=== PATIENT | male | born 1940 | race Caucasian/White ===

== ENCOUNTER 2018-11-14 18:02 | Inpatient (IN) | payer MEDICARE ==
[~2018-11-14] VITALS: Ht 198.1 cm; Wt 113.4 kg
--- OUTSIDE RECORDS SUMMARY | 2018-11-14 18:53 | XMS REPORT | Clinical Summary ---
Author Author [employer] Organization [facility] Address Unknown Phone Unavailable Care Team Providers Care Client Business Manager Name Role Phone Sergey Collazo MD PCP Allergies No Known Allergies Medications End Date Status Medication Sig Dispensed Refills Start Date Active lisinopril Take 10 mg by 0 (PRINIVIL,ZESTRIL) 10 mg mouth daily. 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 Last Filed Vital Signs Not on file Plan of Treatment Health Maintenance Due Date Last Done Comments SHINGLES VACCINES (#1) 1991 65+ PNEUMOCOCCAL VACCINE 2006 (1 of 2 - PCV13) INFLUENZA VACCINE 10/15/2018 Results Not on fileafter 11/13/2017 Insurance Type Payer Benefit Subscriber ID Effective Phone Address Plan / Dates Group O [employer] xxxxxxxxx 2016-P KRUNAL restrepo Advance Directives For more information, please contact: [phone] Patient Student Recruiter Explanation Type Date Recorded Advance Directives, Living Will and Medical Power of Auto Service Representative
--- NOTE | 2018-11-14 19:40 | NUR ---
PATIENT RECEIVED. PATIENT IS AAOX3, RESP EVEN AND UNLABORED. NO ACUTE DISTRESS AT THIS TIME. PATIENT DENIES ANY PAIN OR DISCOMFORT AT THIS TIME. NOTIFIED DR AN PATIENT ARRIVED TO THE HOSPITAL AND ROOM NUMBER. ASSESSMENT COMPLETED. CALL LIGHT WITH REACH. INSTRUCT TO CALL FOR ASSISTANCE. BED LOW/LOCKED. CONTINUE TO MONITOR CLOSELY
[2018-11-14 20:00] VITALS: BP 148/63
[2018-11-14 20:31] VITALS: BP 148/63
[2018-11-14] MEDS: SODIUM CHLORIDE 0.9% 1000ML 1,000 ML IV SCH (20:52)
[2018-11-14] MEDS: CEFEPIME 1GM/NS 0.9% 50 ML 50 ML IV SCH (20:52)
[2018-11-14 21:00] VITALS: BP 148/63
[2018-11-15] VITALS (8 sets, daily range): BP systolic 107–141; BP diastolic 55–83
[2018-11-15] MEDS ORDERED: LISINOPRIL10 MG PO (00:13)
[2018-11-15 00:40] LABS: BILIRUBIN,URINE NEGATIVE (NEGATIVE); CLARITY,URINE SL CLOUDY (CLEAR); COLOR,URINE YELLOW (YELLOW); KETONES,URINE NEGATIVE (NEGATIVE); LEUKOCYTE ESTERASE ,URINE SMALL (NEGATIVE); NITRITE,URINE POSITIVE (NEGATIVE); PROTEIN,URINE DIPSTICK TRACE (NEGATIVE); URINE UROBILINOGEN 0.2 mg/dL (0.2 - 1)
[2018-11-15 01:03] LABS: BACTERIA,URINE MODERATE /HPF; EPITHELIAL CELLS,URINE RARE /LPF; WBC,URINE (MAN) 21-50 /HPF (0-5)
--- NOTE | 2018-11-15 05:13 | NUR ---
H&P cc: dysuria and flank pain HPI: 78yoM, PCP , developed dysuria and B/L flank pain. some fever-subjective. PMH: HTn, pyelonephritis PSHx: cholecystectomy [place]; see emr Fh/SH; single; no cigs meds; see MAR ROS; no cp/sob/c/s/N/V/D/COLON/vision changes/skin rash v/s; revd PE tired appearing anciteric ns1s2 mod bs soft nd B/L flank tenderness no e/t skin dry n. affect a&ox3; pike labs/meds; revd A/P: 78yoM Acute pyelonephritis UTI Dehydration Overweight BMI 28.9 HTN PLAN IV abx f/u cx rehydrate scd/pepcid dispo; Foster Tolentino MD, PhD.
[2018-11-15 06:04] LABS: BASOPHILS # (AUTO) 0.1 (0.0-0.1); BASOPHILS % 0.3 % (0.0-1.0); EOSINOPHILS # (AUTO) 0.1 (0.0-0.4); EOSINOPHILS % 0.3 % (0.0-6.0); HEMATOCRIT 45.5 % (38.2-49.6); HEMOGLOBIN 14.9 g/dL (14.0-18.0); LYMPHOCYTES # (AUTO) 1.6 (1.0-3.2); LYMPHOCYTES % 6.7 % (18.0-39.1); MEAN CORPUSCULAR HEMOGLOBIN 31.1 pg (28-32); MEAN CORPUSCULAR HGB CONC 32.7 g/dL (31-35); MONOCYTES # (AUTO) 1.9 (0.2-0.8); NEUTROPHILS # (AUTO) 19.3 (2.1-6.9); PLATELET COUNT 136 x10e3/uL (140-360); RED BLOOD COUNT 4.79 x10e6/uL (4.3-5.7); RED CELL DISTRIBUTION WIDTH 13.7 % (11.7-14.4)
[2018-11-15 06:25] LABS: ALANINE AMINOTRANSFERASE 10 IU/L (0-55); ALBUMIN 3.2 g/dL (3.5-5.0); ALBUMIN/GLOBULIN RATIO 1.1 (0.8-2.0); ALKALINE PHOSPHATASE 52 IU/L (40-150); BLOOD UREA NITROGEN 14 mg/dL (7-26); BUN/CREATININE RATIO 18 (6-25); CALCIUM 9.8 mg/dL (8.4-10.2); CARBON DIOXIDE 25 mmol/L (22-29); EST GLOMERULAR FILTRATION RATE > 60 ML/MIN (60-); GLUCOSE 126 mg/dL (74-118)
[2018-11-15 07:01] LABS: CHLORIDE 108 mmol/L (98-107); POTASSIUM 4.6 mmol/L (3.5-5.1); SODIUM 138 mmol/L (136-145)
[2018-11-15 07:12] LABS: ANION GAP 9.6 mmol/L (8-16)
--- NOTE | 2018-11-15 07:30 | NUR ---
Received patient this morning, alert and afebrile, denies any pains, IV fluids running at this time, call light within reach, will monitor.
[2018-11-15 08:28] LABS: EOSINOPHILS % (MANUAL) 1 % (0-7); LYMPHOCYTES % (MANUAL) 11 % (19-48); MONOCYTES % (MANUAL) 11 % (3.4-9.0); NEUTROPHILS % (MANUAL) 77 % (40-74)
[2018-11-15 08:29] LABS: PLATELET ESTIMATE ADEQUATE; PLATELET MORPHOLOGY COMMENT NORMAL; RBC MORPHOLOGY COMMENT NORMAL
[2018-11-15] MEDS: LISINOPRIL 10 MG TAB PO SCH (08:59)
[2018-11-15] MEDS: SODIUM CHLORIDE 0.9% 1000ML 1,000 ML IV SCH (14:22)
--- NOTE | 2018-11-15 17:17 | NUR ---
Assisted patient in the room with ambulation, been sitting up on chair and c/o back pain 05/24 and medicated with APAP with good result, voiding well, no other complications, blood and urine cultures pending, IV fluids running as ordered, will monitor, call light within reach.
--- NOTE | 2018-11-15 19:05 | NUR ---
Patient alert and responsive, report given to on coming nurse, patient stable.
--- NOTE | 2018-11-15 19:20 | NUR ---
PATIENT RECEIVED. PATIENT IS AAOX3, RESP EVEN AND UNLABORED. NO ACUTE DISTRESS AT THIS TIME. PATIENT DENIES ANY PAIN OR DISCOMFORT AT THIS TIME. CALL LIGHT WITH REACH. INSTRUCT TO CALL FOR ASSISTANCE. BED LOW/LOCKED. CONTINUE TO MONITOR CLOSELY
[2018-11-15] MEDS: CEFEPIME 1GM/NS 0.9% 50 ML 50 ML IV SCH (20:37)
[2018-11-16] VITALS (8 sets, daily range): BP systolic 126–168; BP diastolic 62–90
[2018-11-16] MEDS: SODIUM CHLORIDE 0.9% 1000ML 1,000 ML IV SCH ×2 (05:54→20:55)
--- NOTE | 2018-11-16 06:37 | NUR ---
IM- progress note O/N no events ROS; no cp/sob/c/s/N/V/D/COLON/vision changes/skin rash v/s; revd PE tired appearing anciteric ns1s2 mod bs soft nd B/L flank tenderness no e/t skin dry n. affect a&ox3; pike labs/meds; revd A/P: 78yoM Acute pyelonephritis UTI Dehydration Overweight BMI 28.9 HTN PLAN IV abx f/u cx rehydrate scd/pepcid dispo; 11/16/18 check labs; cx negative to date Foster Tolentino MD, PhD.
[2018-11-16 06:57] LABS: BASOPHILS # (AUTO) 0.1 (0.0-0.1); BASOPHILS % 0.4 % (0.0-1.0); EOSINOPHILS # (AUTO) 0.3 (0.0-0.4); HEMOGLOBIN 14.5 g/dL (14.0-18.0); LYMPHOCYTES # (AUTO) 1.6 (1.0-3.2); LYMPHOCYTES % 11.4 % (18.0-39.1); MEAN CORPUSCULAR HEMOGLOBIN 31.7 pg (28-32); MEAN CORPUSCULAR HGB CONC 33.7 g/dL (31-35); MEAN CORPUSCULAR VOLUME 93.9 fL (81-99); MONOCYTES # (AUTO) 1.1 (0.2-0.8); MONOCYTES % 7.9 % (4.4-11.3); NEUTROPHILS # (AUTO) 10.7 (2.1-6.9); NEUTROPHILS % 77.6 % (38.7-80.0); PLATELET COUNT 125 x10e3/uL (140-360); RED BLOOD COUNT 4.58 x10e6/uL (4.3-5.7); RED CELL DISTRIBUTION WIDTH 13.7 % (11.7-14.4)
--- NOTE | 2018-11-16 07:00 | NUR ---
received am report from KLAUDIA,RN and morning rounds done. pt is resting is bed, no s/s of distress. pt has no complaints at this time. call light within reach and instructed pt to call rn for help
[2018-11-16 07:07] LABS: ANION GAP 11.1 mmol/L (8-16); BLOOD UREA NITROGEN 11 mg/dL (7-26); BUN/CREATININE RATIO 13 (6-25); CALCIUM 9.7 mg/dL (8.4-10.2); CARBON DIOXIDE 22 mmol/L (22-29); CHLORIDE 108 mmol/L (98-107); CREATININE, SERUM 0.83 mg/dL (0.72-1.25); EST GLOMERULAR FILTRATION RATE > 60 ML/MIN (60-); GLUCOSE 110 mg/dL (74-118); POTASSIUM 4.1 mmol/L (3.5-5.1); SODIUM 137 mmol/L (136-145)
[2018-11-16] MEDS: LISINOPRIL 10 MG TAB PO SCH (08:52)
[2018-11-16] MEDS: CEFEPIME 1GM/NS 0.9% 50 ML 50 ML IV SCH (20:55)
--- NOTE | 2018-11-16 22:50 | NUR ---
Patient having trouble urinating. patient urinated in urinal 300 mls. bladder scanned and 398ml in bladder. call placed to dr. andrews. new medication orders beatris'curly.
[2018-11-16] MEDS ORDERED: TAMSULOSIN HCL 0.4 MG CAP PO ONE (23:00)
[2018-11-16] MEDS ORDERED: FINASTERIDE 5 MG TAB PO ONE (23:00)
[2018-11-16] MEDS: ACETAMINOPHEN 325 MG TAB PO PRN (23:00)
[2018-11-17] VITALS (8 sets, daily range): BP systolic 143–158; BP diastolic 74–93
--- NOTE | 2018-11-17 07:00 | NUR ---
BEDSIDE SHIFT REPORT RECEIVED FROM THE STOVE TENDER RN. PT DENIES NEEDS AT THIS TIME.
[2018-11-17 07:55] LABS: BASOPHILS # (AUTO) 0.1 (0.0-0.1); BASOPHILS % 0.7 % (0.0-1.0); EOSINOPHILS # (AUTO) 0.5 (0.0-0.4); EOSINOPHILS % 5.4 % (0.0-6.0); HEMATOCRIT 47.2 % (38.2-49.6); HEMOGLOBIN 15.8 g/dL (14.0-18.0); LYMPHOCYTES # (AUTO) 1.5 (1.0-3.2); LYMPHOCYTES % 17.8 % (18.0-39.1); MEAN CORPUSCULAR HEMOGLOBIN 31.3 pg (28-32); MEAN CORPUSCULAR HGB CONC 33.5 g/dL (31-35); MEAN CORPUSCULAR VOLUME 93.5 fL (81-99); MONOCYTES # (AUTO) 0.7 (0.2-0.8); MONOCYTES % 8.5 % (4.4-11.3); NEUTROPHILS # (AUTO) 5.6 (2.1-6.9); PLATELET COUNT 154 x10e3/uL (140-360); RED BLOOD COUNT 5.05 x10e6/uL (4.3-5.7); RED CELL DISTRIBUTION WIDTH 13.5 % (11.7-14.4)
[2018-11-17] MEDS: TAMSULOSIN HCL 0.4 MG CAP PO SCH ×2 (08:27→16:53)
[2018-11-17] MEDS: FINASTERIDE 5 MG TAB PO SCH (08:27)
[2018-11-17] MEDS: LISINOPRIL 10 MG TAB PO SCH ×2 (08:28→16:53)
[2018-11-17] MEDS: SODIUM CHLORIDE 0.9% 1000ML 1,000 ML IV SCH (14:46)
--- NOTE | 2018-11-17 17:39 | Progress Note ---
DATE: 11/17/2018 Medicine Progress Note This patient was transferred to my service from Dr. Foster Tolentino due to insurance issues. SUBJECTIVE: The patient is new to my service. I reviewed the case with the patient, the patient's , and the nurse at bedside. The patient was transferred from [facility] due to underlying difficulty urinating and was treated for underlying pyelonephritis. Currently, at [facility] ER, the patient had blood and urine cultures collected there. He was found to have a fever, elevated white count, treated for underlying sepsis concerning for underlying pyelonephritis, UTI. While here, his white count on admission was 22.9, then down to 8.3 today. His electrolytes are stable. Blood and urine cultures were negative, but he did receive antibiotics at the [facility]. PHYSICAL EXAMINATION: VITAL SIGNS: Temperature is 97.4, pulse 67, respiratory rate is 20, blood pressure is 157/86, and pulse ox 95% on room air. GENERAL: Not in acute distress. Alert and oriented x3. Cooperative on examination. HEENT: Head; normocephalic, atraumatic. Eyes; pupils are equal, round, and reactive to light bilaterally. Extraocular movements intact bilaterally. Throat; no evidence of erythema or exudates in the posterior pharynx. Has poor dentition. NECK: Supple. Good range of motion. PULMONARY: Clear to auscultation bilaterally. No wheezing, no rales, no rhonchi, no crackles appreciated. CARDIOVASCULAR: Positive S1 and S2. No murmurs, rubs, or gallops appreciated. ABDOMEN: Soft, nondistended, and nontender to palpation. Bowel sounds present. MUSCULOSKELETAL: Strength is 5/5 throughout. No evidence of any muscle deficits on examination. No weakness appreciated. NEUROLOGIC: Cranial nerve II through XII grossly intact. No evidence of any neurological deficits on exam. SKIN: Intact. Warm to touch. Good cap refill. PSYCHIATRIC: Normal affect and mood. EXTREMITIES: No edema. Good range of motion throughout. LABORATORY FINDINGS: Show white count on admission 22.9, now 8.3, hemoglobin 15.8, hematocrit is 47, platelets of 154. Chemistry; sodium 137, potassium 4.1, chloride 108, bicarb 22, anion gap of 11, BUN is 11, creatinine is 0.83, glucose is 110, calcium is 9.7. LFTs within normal range. Albumin is 3.2. Urinalysis was consistent with the UTI. MICROBIOLOGY: Blood and urine cultures, no growth today. IMAGING STUDIES: The patient refused CT abdomen and pelvis from the outside ER and did not want any imaging studies performed. He does not have any imaging studies here as well due to refusal. He did have a chest x-ray at [facility], which was found to be negative. No CT or x-ray of the abdomen performed due to patient's refusal. IMPRESSION: 1. Sepsis, presumed to be from acute pyelonephritis. 2. Benign prostatic hypertrophy. 3. Acute kidney injury secondary to dehydration, resolved. 4. Overweight. 5. Hypertension. PLAN: At this time, our blood and urine cultures were found to be negative. I am requesting the records from the [facility] to see what the blood and urine cultures were there. Continue with IV cefepime while here at this hospital. We will go ahead and get repeat labs as well. His white count improved. His electrolytes are stable. He is afebrile, normotensive. Continue same home medications with no changes. Once again, he did refuse imaging studies at the [facility] and it seems like he also refused imaging studies here. He is clinically improving. His white count is better. He is afebrile. He reports no other complaints. He was started on Flomax yesterday for BPH and he has had better urine flow with no complications. Otherwise, we will continue with same plan of care and monitor very closely. He is not on IV Rocephin, he is on IV cefepime for antibiotics. We will continue to monitor him very closely. MD MARANDA Heart/HILDA /[id number]
--- NOTE | 2018-11-17 19:00 | NUR ---
BEDSIDE SHIFT REPORT GIVEN TO THE COMMUTATOR OPERATOR RN. PT FAMILY AT BEDSIDE. PT DENIED FURTHER NEEDS.
[2018-11-17] MEDS: CEFEPIME 1GM/NS 0.9% 50 ML 50 ML IV SCH (20:20)
[2018-11-18 00:02] VITALS: BP 152/79
[2018-11-18 05:24] VITALS: BP 144/76
[2018-11-18] MEDS: SODIUM CHLORIDE 0.9% 1000ML 1,000 ML IV SCH (07:07)
[2018-11-18] MEDS: ACETAMINOPHEN 325 MG TAB PO PRN (07:20)
--- NOTE | 2018-11-18 07:24 | NUR ---
Faxed release of records to [facility]. awaiting labs.
[2018-11-18 07:53] VITALS: BP 162/92
[2018-11-18 09:00] VITALS: BP 162/92
[2018-11-18] MEDS: LISINOPRIL 10 MG TAB PO SCH (09:00)
[2018-11-18] MEDS: FINASTERIDE 5 MG TAB PO SCH (09:00)
[2018-11-18] MEDS: TAMSULOSIN HCL 0.4 MG CAP PO SCH (09:00)
[2018-11-18 11:27] VITALS: BP 142/86
--- NOTE | 2018-11-18 12:42 | NUR ---
IMM letter delivered and explained to pt. He verbalized understanding. States he's ready to go home. Signed copy placed in chart. Copy to pt.
[2018-11-18 14:41] LABS: BASOPHILS # (AUTO) 0.1 (0.0-0.1); BASOPHILS % 1.1 % (0.0-1.0); EOSINOPHILS # (AUTO) 0.4 (0.0-0.4); EOSINOPHILS % 5.1 % (0.0-6.0); HEMATOCRIT 45.7 % (38.2-49.6); HEMOGLOBIN 15.5 g/dL (14.0-18.0); LYMPHOCYTES # (AUTO) 1.6 (1.0-3.2); LYMPHOCYTES % 21.5 % (18.0-39.1); MEAN CORPUSCULAR HEMOGLOBIN 31.3 pg (28-32); MEAN CORPUSCULAR HGB CONC 33.9 g/dL (31-35); MEAN CORPUSCULAR VOLUME 92.1 fL (81-99); MONOCYTES # (AUTO) 0.8 (0.2-0.8); NEUTROPHILS # (AUTO) 4.4 (2.1-6.9); NEUTROPHILS % 60.8 % (38.7-80.0); PLATELET COUNT 177 x10e3/uL (140-360); RED BLOOD COUNT 4.96 x10e6/uL (4.3-5.7); RED CELL DISTRIBUTION WIDTH 13.2 % (11.7-14.4)
[2018-11-18 15:04] LABS: ANION GAP 13.6 mmol/L (8-16); BLOOD UREA NITROGEN 11 mg/dL (7-26); BUN/CREATININE RATIO 15 (6-25); CALCIUM 10.2 mg/dL (8.4-10.2); CARBON DIOXIDE 23 mmol/L (22-29); CHLORIDE 102 mmol/L (98-107); CREATININE, SERUM 0.75 mg/dL (0.72-1.25); EST GLOMERULAR FILTRATION RATE > 60 ML/MIN (60-); GLUCOSE 96 mg/dL (74-118); POTASSIUM 3.6 mmol/L (3.5-5.1); SODIUM 135 mmol/L (136-145)
[2018-11-18 15:40] VITALS: BP 146/81
[2018-11-18] MEDS ORDERED: CEFDINIR300 MG PO (16:34)
[2018-11-18] MEDS ORDERED: FLOMAX0.4 MG PO (16:35)
[2018-11-18] MEDS ORDERED: LISINOPRIL10 MG PO (16:35)
[2018-11-18] MEDS ORDERED: FINASTERIDE5 MG PO (16:35)
--- NOTE | 2018-11-18 23:21 | Discharge Summary ---
FINAL DISCHARGE DIAGNOSES: 1. Acute pyelonephritis, found to have positive urine culture for Escherichia coli, sensitive to cephalosporins. 2. Benign prostatic hypertrophy. 3. Acute kidney injury secondary to dehydration, resolved. 4. Overweight. 5. Hypertension. CONSULTANTS: None. PHYSICAL EXAMINATION: VITAL SIGNS: Temperature 96, pulse 65, respiratory rate is 18, blood pressure 142/86, pulse ox 96% on room air. MEDICATIONS: Omnicef 300 mg one tab p.o. q.12 hours x10 days, lisinopril 10 mg p.o. b.i.d., finasteride 5 mg daily, and tamsulosin 0.4 mg p.o. daily. LAB FINDINGS: Show white count was 8.3, hemoglobin 15.8, hematocrit was 47, platelets of 154. Chemistry; sodium 137, potassium 4.1, chloride 108, bicarb 22, anion gap of 11, BUN 11, creatinine 0.83, glucose 110, calcium 9.7, AST 12, ALT 10, albumin 3.2. Urinalysis consistent with UTI. Our urine culture was negative, but the outside [facility] ER urine culture showed E coli, sensitive to cephalosporins. Blood cultures here were negative. Blood cultures at the [facility] ER were negative. IMAGING STUDIES: Chest x-ray found to be negative. He refused CT abdomen and pelvis at the [facility] ER. HOSPITAL COURSE: A 78-year-old male, came from an outside [facility] ER with complaints of suprapubic pain and bilateral flank pain. While at that facility, he refused CT abdomen and pelvis imaging studies. His UA was consistent for UTI and was started on IV antibiotics and transferred to [facility] for further management and care. While here, the patient maintained on IV antibiotic therapy. On admission, his white count was elevated at 22. Our blood and urine cultures were found to be negative. [facility] showed blood cultures no growth, but the urine culture was positive for E coli greater than 100,000 and sensitive to cephalosporins. While here, he was on cephalosporins and was discharged on oral Omnicef for 10 more days. He was advised to follow up with an outpatient urologist. Information to Dr. Recinos has been given to them as well. While here, he improved tremendously with no complaints. He was tolerating diet well and he had no more complaints of any flank pain or suprapubic pain. He was started on Flomax and finasteride with good urine flow. That was his major complaint when he went to the [facility] that he was having flow issues and pain and likely to have underlying BPH. On discharge, he was doing well back to normal baseline with no other complaints. On the day of discharge, vital signs were stable, labs reviewed and stable. The patient is seen and evaluated, examined thoroughly on the day of discharge. No other complaints. The patient verbalized understanding and agrees to plan of care to follow up as an outpatient with the PCP in 1 week and outpatient urologist in 1 to 2 weeks' time. MEDICATIONS: See med reconciliation form. DISPOSITION: Home. CONDITION: Stable. DIET: Heart healthy. In the event of any worsening symptoms, the patient was advised to come back to the ED for further evaluation. Discharge summary took greater than 35 minute. MD MARANDA Heart/HILDA /[id number]
== END 2018-11-18 16:48 | disposition home or self-care (01) | DRG 872 ==
LOC: MED/SURG2 18:47 → MED/SURG 11-17 17:28 → MED/SURG2 11-17 17:29
PROVIDERS: ADMIT Internal Medicine; ATTEND Internal Medicine
DX: A41.9 Sepsis, unspecified organism (principal); N10 Acute pyelonephritis; N17.9 Acute kidney failure, unspecified; E86.0 Dehydration; I10 Essential (primary) hypertension; E66.3 Overweight; Z68.28 Body mass index [BMI] 28.0-28.9, adult; N40.0 Benign prostatic hyperplasia without lower urinary tract symptoms; B96.20 Unspecified Escherichia coli [E. coli] as the cause of diseases classified elsewhere
CPT/HCPCS: 36415; 80048; 80053; 81001; 85025; 87040; 87086; J0692; J7030

== ENCOUNTER 2023-11-11 21:07 | Inpatient (IN) | payer MEDICARE ==
[~2023-11-11] VITALS: Ht 193 cm; Wt 117.9 kg
[~2023-11-11 21:07] MED LIST: ASPIRIN81 MG PO; CEFDINIR300 MG PO; DOCUSATE SODIU100 MG PO; FINASTERIDE5 MG PO; FLOMAX0.4 MG PO; HYDROMORPHONE HC2 MG PO; LISINOPRIL10 MG PO; MELATONIN10 M1 PO; MELOXICAM7.5 MG PO; SENOKOT-S TABL1 EACH PO; TIZANIDINE HCL4 M1 PO
[2023-11-11 21:15] VITALS: TEMP 98.3
[2023-11-11 21:52] LABS: BASOPHILS # (AUTO) 0.1 (0.0-0.1); BASOPHILS % 0.6 % (0.0-1.0); EOSINOPHILS # (AUTO) 0.2 (0.0-0.4); HEMATOCRIT 50.4 % (38.2-49.6); HEMOGLOBIN 16.5 g/dL (14.0-18.0); LYMPHOCYTES # (AUTO) 1.6 (1.0-3.2); LYMPHOCYTES % 9.8 % (18.0-39.1); MEAN CORPUSCULAR HEMOGLOBIN 31.9 pg (28-32); MEAN CORPUSCULAR HGB CONC 32.7 g/dL (31-35); MEAN CORPUSCULAR VOLUME 97.5 fL (81-99); MONOCYTES # (AUTO) 1.9 (0.2-0.8); MONOCYTES % 11.9 % (4.4-11.3); NEUTROPHILS # (AUTO) 12.5 (2.1-6.9); NEUTROPHILS % 76.1 % (38.7-80.0); PLATELET COUNT 143 x10e3/uL (140-360); RED BLOOD COUNT 5.17 x10e6/uL (4.3-5.7); RED CELL DISTRIBUTION WIDTH 13.3 % (11.7-14.4); WHITE BLOOD COUNT 16.36 x10e3/uL (4.8-10.8)
[2023-11-11 22:05] LABS: ALBUMIN 3.8 g/dL (3.5-5.0); ALBUMIN/GLOBULIN RATIO 1.1 (0.8-2.0); ALKALINE PHOSPHATASE 61 IU/L (40-150); BILIRUBIN,TOTAL 3.4 mg/dL (0.2-1.2); BLOOD UREA NITROGEN 12 mg/dL (7-26); BUN/CREATININE RATIO 15 (6-25); CALCIUM 10.2 mg/dL (8.4-10.2); CARBON DIOXIDE 18 mmol/L (22-29); CHLORIDE 107 mmol/L (98-107); CREATINE KINASE 23 IU/L (30-200); CREATININE, SERUM 0.81 mg/dL (0.72-1.25); EST GLOMERULAR FILTRATION RATE 88 ML/MIN (>=60); GLUCOSE 124 mg/dL (74-118); SODIUM 137 mmol/L (136-145); TOTAL PROTEIN 7.2 g/dL (6.5-8.1)
[2023-11-11 22:08] LABS: ALANINE AMINOTRANSFERASE < 6 IU/L (0-55)
[2023-11-11 22:12] LABS: TROPONIN I 0.022 ng/mL (0-0.300)
[2023-11-11 22:30] VITALS: RESP 22
[2023-11-11] MEDS: ONDANSETRON HCL INJ 2MG/ML 2ML 2 MG/ML VIAL IV STA (22:57)
[2023-11-11] MEDS: Morphine 2mg Syringe 2 MG/ML SYR IV ONE (22:57)
[2023-11-11 23:00] VITALS: PULSE 92
[2023-11-11] MEDS ORDERED: IOPAMIDOL 370 MG/ML 100 ML INFUS..BTL INJ ONE (23:51)
[2023-11-12] VITALS (13 sets, daily range): BP systolic 135–166; BP diastolic 63–121; PULSE 66–100; RESP 18–22; TEMP 97.5–99.1; O2SAT 84–99
[2023-11-12] MEDS ORDERED: ONDANSETRON HCL INJ 2MG/ML 2ML 2 MG/ML VIAL IV PRN (01:00)
[2023-11-12] MEDS ORDERED: DEXTROSE 50% SYRINGE 50 ML IV PRN (01:00)
[2023-11-12] MEDS ORDERED: HEPARIN SOD/DEXTROSE 5% 25000 UNIT/250 ML BAG IV SCH (01:00)
[2023-11-12] MEDS ORDERED: SODIUM CHLORIDE FLUSH 10 ML SYR INJ PRN (01:00)
[2023-11-12] MEDS: HEPARIN SOD (PORCINE) 5,000 UNIT/ML VIAL IV ONE (01:26)
[2023-11-12] MEDS: HEPARIN 25,000 UNIT/D5W 250ML 250 ML IV SCH (01:27)
[2023-11-12] MEDS ORDERED: VITAMIN B-121000 MCG PO (02:52)
[2023-11-12] MEDS ORDERED: CARBIDOPA-LEVO1 EA10 PO (02:52)
[2023-11-12] MEDS ORDERED: METOPROLOL SUCC25 MG PO (02:52)
[2023-11-12] MEDS ORDERED: VITAMIN D31250 MCG (02:52)
[2023-11-12] MEDS ORDERED: SENNA LAX8.6 MG PO (02:52)
[2023-11-12] MEDS ORDERED: MAGNESIUM/ALUMINUM/SIMETHICONE 30 ML UDC PO PRN (05:45)
[2023-11-12] MEDS ORDERED: MELATONIN 3 MG TAB PO PRN (05:45)
[2023-11-12] MEDS ORDERED: POLYETHYLENE GLYCOL 3350 17 GM PACK PO PRN (05:45)
[2023-11-12] MEDS ORDERED: HYDRALAZINE HCL 20 MG/ML VIAL IV PRN (05:45)
[2023-11-12] MEDS ORDERED: ACETAMINOPHEN 325 MG TAB PO PRN (05:45)
[2023-11-12 06:40] LABS: INR 1.13; PROTHROMBIN TIME 15.1 seconds (11.9-14.5)
[2023-11-12 06:41] LABS: PARTIAL THROMBOPLASTIN TIME 41.9 seconds (23.8-35.5)
[2023-11-12 07:04] LABS: TROPONIN I 0.013 ng/mL (0-0.300)
[2023-11-12] MEDS: INSULIN REGULAR, HUMAN 100 UNIT/1 ML SQ SCH (07:30)
[2023-11-12] MEDS: CYANOCOBALAMIN 1,000 MCG TAB PO SCH (08:23)
[2023-11-12] MEDS: DOCUSATE SODIUM 100 MG CAP PO SCH (08:23)
[2023-11-12] MEDS: MULTIVITAMINS/MINERALS TAB PO SCH (08:23)
[2023-11-12] MEDS: TAMSULOSIN HCL 0.4 MG CAP PO SCH (08:23)
[2023-11-12] MEDS: METOPROLOL SUCCINATE 25 MG TAB XL PO SCH (08:24)
[2023-11-12] MEDS: SENNOSIDES 8.6 MG TAB PO SCH (08:24)
[2023-11-12] MEDS: FINASTERIDE 5 MG TAB PO SCH (08:24)
[2023-11-12 08:44] LABS: BILIRUBIN,URINE NEGATIVE (NEGATIVE); CLARITY,URINE CLEAR (CLEAR); COLOR,URINE YELLOW (YELLOW); GLUCOSE, URINE NEGATIVE (NEGATIVE); KETONES,URINE TRACE (NEGATIVE); LEUKOCYTE ESTERASE ,URINE NEGATIVE (NEGATIVE); NITRITE,URINE NEGATIVE (NEGATIVE); PH,URINE 5.5 (5 - 7); PROTEIN,URINE DIPSTICK NEGATIVE (NEGATIVE); URINE UROBILINOGEN 0.2 mg/dL (0.2 - 1)
[2023-11-12 09:17] LABS: EPITHELIAL CELLS,URINE FEW /LPF
[2023-11-12 09:18] LABS: BACTERIA,URINE FEW /HPF; RBC,URINE 0-5 /HPF (0-5)
[2023-11-12] MEDS: LISINOPRIL 10 MG TAB PO SCH (09:23)
[2023-11-12] MEDS: Morphine 2mg Syringe 2 MG/ML SYR IV PRN (15:08)
[2023-11-12 16:22] LABS: TROPONIN I 0.013 ng/mL (0-0.300)
[2023-11-13] VITALS (11 sets, daily range): BP systolic 119–157; BP diastolic 61–84; PULSE 74–98; RESP 18–20; TEMP 97.5–98.3; O2SAT 92–98
[2023-11-13 06:05] LABS: BASOPHILS # (AUTO) 0.1 (0.0-0.1); BASOPHILS % 0.4 % (0.0-1.0); EOSINOPHILS # (AUTO) 0.1 (0.0-0.4); HEMATOCRIT 48.3 % (38.2-49.6); HEMOGLOBIN 15.6 g/dL (14.0-18.0); LYMPHOCYTES # (AUTO) 1.4 (1.0-3.2); LYMPHOCYTES % 9.8 % (18.0-39.1); MEAN CORPUSCULAR HEMOGLOBIN 31.8 pg (28-32); MEAN CORPUSCULAR HGB CONC 32.3 g/dL (31-35); MEAN CORPUSCULAR VOLUME 98.6 fL (81-99); MONOCYTES # (AUTO) 1.6 (0.2-0.8); MONOCYTES % 11.5 % (4.4-11.3); NEUTROPHILS # (AUTO) 10.8 (2.1-6.9); NEUTROPHILS % 76.7 % (38.7-80.0); PLATELET COUNT 132 x10e3/uL (140-360); RED CELL DISTRIBUTION WIDTH 13.3 % (11.7-14.4); WHITE BLOOD COUNT 14.05 x10e3/uL (4.8-10.8)
[2023-11-13 06:31] LABS: ALBUMIN 3.3 g/dL (3.5-5.0); ALBUMIN/GLOBULIN RATIO 0.9 (0.8-2.0); ANION GAP 13.8 mmol/L (8-16); BILIRUBIN,TOTAL 2.8 mg/dL (0.2-1.2); CALCIUM 10.1 mg/dL (8.4-10.2); CREATININE, SERUM 0.79 mg/dL (0.72-1.25); POTASSIUM 3.8 mmol/L (3.5-5.1); TOTAL PROTEIN 6.8 g/dL (6.5-8.1)
[2023-11-13] MEDS: CARBIDOPA/LEVODOPA 25/100 TAB PO SCH (08:50)
[2023-11-13] MEDS ORDERED: NON-FORMULARY MEDICATION (Carbidopa/Levodopa (Carbidopa-Levo 25-100 Mg Odt) 2 TAB) PO SCH (09:00)
[2023-11-13] MEDS: APIXABAN 5 MG TABLET PO SCH (09:20)
[2023-11-13] MEDS: GUAIFENESIN/DEXTROMETHORPHAN LIQD 5 ML UDC PO PRN (09:21)
[2023-11-14] VITALS: BP 133/63; PULSE 90; RESP 18; TEMP 98.2; O2SAT 98
[2023-11-14 04:00] VITALS: BP 131/66; PULSE 84; RESP 18; TEMP 98; O2SAT 99
[2023-11-14 08:37] VITALS: BP 147/87; PULSE 92; RESP 17; TEMP 97.9; O2SAT 99
[2023-11-14 09:00] VITALS: BP 147/87; PULSE 92; RESP 18; TEMP 97.9; O2SAT 99
[2023-11-14] MEDS: SODIUM CHLORIDE 0.9% 250ML 250 ML ONE (10:06)
[2023-11-14 11:55] VITALS: BP 136/76; PULSE 76; RESP 17; TEMP 97.6; O2SAT 98
[2023-11-20] MEDS ORDERED: APIXABAN 5 MG TABLET PO SCH (09:00)
== END 2023-11-14 11:40 | disposition home health service (06) | DRG 175 ==
LOC: ER 21:11 → ERHOLD 11-12 01:03 → MED/SURG3 11-12 02:00 → OBSVTOIN 11-12 08:05
PROVIDERS: ADMIT Internal Medicine; ATTEND Internal Medicine
DX: I26.99 Other pulmonary embolism without acute cor pulmonale (principal); J18.9 Pneumonia, unspecified organism; G20.A1 Parkinson's disease without dyskinesia, without mention of fluctuations; R09.1 Pleurisy; D72.828 Other elevated white blood cell count; E11.9 Type 2 diabetes mellitus without complications; E21.3 Hyperparathyroidism, unspecified; I48.0 Paroxysmal atrial fibrillation; I10 Essential (primary) hypertension; N40.0 Benign prostatic hyperplasia without lower urinary tract symptoms; K57.30 Diverticulosis of large intestine without perforation or abscess without bleeding; Z90.49 Acquired absence of other specified parts of digestive tract; Z87.440 Personal history of urinary (tract) infections; Z87.891 Personal history of nicotine dependence; Z79.899 Other long term (current) drug therapy; Z79.82 Long term (current) use of aspirin
CPT/HCPCS: 36415; 71045; 71260; 74177; 80053; 81001; 82550; 82948; 83036; 83690; 84484; 85025; 85379; 85610; 85730; 93005; 93306; 93970; 94799; 99284; J0696; J1644; J2270; J2405; J2470; J7050; Q9967